=== PATIENT | male | born 2000 | race Caucasian/White ===

== ENCOUNTER 2022-12-24 08:11 | Outpatient (CLI) | payer MEDICAID, OTHER | END 2022-12-24 08:12 | disposition EMS.NT | LOC: EMS 08:11 | DX: M79.662 Pain in left lower leg (principal); V47.0XXA Car driver injured in collision with fixed or stationary object in nontraffic accident, initial encounter; Y92.410 Unspecified street and highway as the place of occurrence of the external cause ==

== ENCOUNTER 2022-12-24 11:56 | Outpatient (CLI) | payer OTHER, MEDICAID | END 2022-12-24 11:57 | disposition home or self-care (01) | LOC: LAB 11:56 → EDSTATUS 11:57 | PROVIDERS: ATTEND Pathology Blood Banking & Transfusion Medicine | DX: Z01.89 Encounter for other specified special examinations (principal) | CPT/HCPCS: 36415 ==

== ENCOUNTER 2023-09-30 15:01 | Emergency (ER) | payer MEDICAID ==
[2023-09-30 15:17] VITALS: BP 116/69; O2SAT 100
[2023-09-30] MEDS ORDERED: BUFFERED LIDOCAINE 10 ML SYRINGE SUBQ STA (15:21)
--- NOTE | 2023-09-30 15:22 | ED Physician Documentation ---
History of Present Illness - Stated complaint Stated Complaint: LUMP LIP - History obtained from History obtained from: Patient - Additonal information Additional information: 23-year-old gentleman with a history of recurrent skin and soft tissue infections. I asked him if he has a history of MRSA and he stated he had heard of it but has not been formally diagnosed. He comes in with a very painful lump on the right upper lip that has been going on for several days. It is not associated with fevers. PD PAST MEDICAL HISTORY - Past Medical History Past Medical History: Yes Cardiovascular: None Respiratory: None Neuro: None Endocrine/Autoimmune: None GI: None : None HEENT: None Psych: None Musculoskeletal: None Derm: None - Past Surgical History Past Surgical History: Yes - Present Medications Home Medications: Ambulatory Orders Medication Instructions Recorded Confirmed Chlorhexidine Gluconate [Hibiclens] 10 ml TP DAILY #236 ml 09/30/23 Mupirocin 2% Oint [Bactroban 2% 1 applic ROBYN BID #50 gm 09/30/23 Oint] Sulfamethox/Trimeth 800/160 1 each PO BID #20 tablet 09/30/23 [Bactrim Ds 800/160] - Allergies Allergies/Adverse Reactions: Allergies Allergy/AdvReac Type Severity Reaction Status Date / Time No Known Drug Allergies Allergy Verified 09/30/23 15:15 - Social History Does the pt smoke?: Yes Smoking Status: Current every day smoker Does the pt drink ETOH?: Yes ETOH Use: Beer Does the pt have substance abuse?: No Substance Use and Type: Marijuana - Immunizations Immunizations are current?: Yes - POLST Patient has POLST: No PD ED PE NORMAL - Vitals Vital signs reviewed: Yes - General General: Alert and oriented X 3, No acute distress - HEENT HEENT: Other (Large pointed abscess right upper lip) - Neck Neck: Supple, no meningeal sign, No bony TTP - Neuro Neuro: Alert and oriented X 3 Results - Vitals Vitals: Vital Signs - 24 hr 09/30/23 09/30/23 15:07 15:33 Temperature 36.7 C Heart Rate 104 H Respiratory 18 17 Rate Blood Pressure 116/69 O2 Saturation 100 Oxygen O2 Source Room air Procedures - Abscess I&D (location) upper lip Preparation: Lidocaine 1% (infraorbital nerve block with intraoral appraoch) Incision: Incised with scalpel, Purulent drainage, Loculations broken, Culture obtained Other: Pt tolerated well Departure - Departure Disposition: 01 Home, Self Care Clinical Impression: Facial abscess Condition: Stable Instructions: ED Abscess IandD Prescriptions: Sulfamethox/Trimeth 800/160 [Bactrim Ds 800/160] 1 each PO BID #20 tablet Mupirocin 2% Oint [Bactroban 2% Oint] 1 applic ROBYN BID #50 gm Chlorhexidine Gluconate [Hibiclens] 10 ml TP DAILY #236 ml Comments: I sent your prescriptions electronically to the [facility] in [place]. We are performing a wound culture, the results should be done in 48-72 hours. If antibiotic change is necessary we will call you. Return if worse in the meantime, especially if you develop increased pain, fevers, cannot keep down the medication. Otherwise follow-up with your physician in approximately 2-3 days.
--- NOTE | 2023-10-02 15:36 | ED Physician Documentation ---
ED Addendum - Addendum Addendum: 10/02/23 15:35 Culture reviewed, he is on Bactrim which should be appropriate. I called him to notify him of MRSA positivity, it went to voicemail and I invited him to call us back if he would like the results.
== END 2023-09-30 16:11 | disposition home or self-care (01) ==
LOC: ED 15:01
DX: L02.01 Cutaneous abscess of face (principal); B95.62 Methicillin resistant Staphylococcus aureus infection as the cause of diseases classified elsewhere; F17.200 Nicotine dependence, unspecified, uncomplicated
CPT/HCPCS: 10060; 87070; 87181; 87205; 99283